=== PATIENT | female | born 1975 | race American Indian/Alaskan Native ===

== ENCOUNTER 2017-10-01 12:06 | Day surgery (SDC) | payer MEDICARE ==
[~2017-10-01 12:06] MED LIST: XYLOCAINE MPF 2% ONE
[2017-10-01] MEDS ORDERED: NACL 0.9% 1000 ML 1,000 ML ONE (12:38)
[2017-10-01] MEDS ORDERED: NACL 0.9% 1000 ML 1,000 ML IV SCH (14:00)
[2017-10-01] MEDS ORDERED: DIPRIVAN 10 MG/ML IV ONE ×2 (16:04→16:05)
--- NOTE | 2017-10-01 16:32 | Anesthesia Day of Surgery ---
Anesthesia Day of Surgery - Day of Surgery Patient Examined: Yes Patient H&P Reviewed: Yes Patient is NPO: Yes
--- NOTE | 2017-10-01 16:32 | Anesthesia Consultation ---
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 Heart catheterization this year show normal heart function per mother. - Pulmonary Hx Smoking: No Hx Asthma: Yes (INHALER 2x daily) Hx Sleep Apnea: No - Cardiovascular System Hx Hypertension: No Hx Heart Murmur: Yes - Central Nervous System Hx Psychiatric Problems: No - Gastrointestinal Hx Gastroesophageal Reflux Disease: Yes
--- NOTE | 2017-10-01 17:03 | Operative Report ---
Operative Report Operative Report: Date of procedure: 10/01/2017 Procedure: Colonoscopy with multiple biopsies Attending physician: Edy Judd MD Billing Representative: Edy Judd MD Indication: Patient is a 42-year-old female who presented history of abdominal pain and diarrhea. Colonoscopy is done to evaluate patient so that treatment may be directed based on the findings. Consent: Informed consent was obtained after advising the patient and family regarding nature of this procedure, its indications, potential benefits as well as possible complications including but not limited to bleeding perforation and adverse reaction to medication, infection as well as other cardiopulmonary complications. An informed written and verbal consent was then obtained after due opportunity was provided for questions and answers. Monitoring: Patient was monitored continuously with pulse oximetry and electrocardiographic recordings as well as blood pressure recordings. Vital signs remained stable throughout this procedure with no untoward events. Preoperative assessment: Patient was assessed immediately prior to this procedure for capacity to tolerate monitored anesthesia care and moderate sedation as well as general anesthesia. Patient's ASA classification is 2, Mallampati class is 2, Hyomental distance is 3. Instrument: Yastn videocolonoscope Medications: Propofol, given intravenously in divided doses for details please refer to anesthesia records Description of procedure: Patient was placed in the left lateral decubitus position after achieving sedation, a digital rectal examination was performed following which the colonoscope was introduced into the anal verge and advanced to the cecum which was identified by the cecal valve, the appendiceal orifice, as well as by the cecal strap and direct transillumination. The colonoscope was subsequently withdrawn with careful inspection of all mucosal surfaces. Patient tolerated this procedure well and was subsequently taken to the recovery room. The following findings were noted. Findings: Patient had densely adherent stool in sections of the colon which were vigorously irrigated with no underlying mucosal lesions. Several random biopsies were obtained from sigmoid colon to rule out microscopic colitis. There were otherwise no gross mucosal abnormalities seen. On the retroflex view at the anal verge, patient had internal hemorrhoids. Impression: Retained stool otherwise normal colonoscopy. Patient is status post multiple random biopsies. Internal hemorrhoids. Plan: Follow pathology report to rule out microscopic colitis. Continue as needed antidiarrheals. Manage supportively. Patient also may benefit from taking probiotics.
--- NOTE | 2017-10-01 17:04 | Discharge Summary ---
Short Stay Discharge Plan Activity: advance as tolerated Weight Bearing Status: Weight Bear as Tolerated Diet: regular
[2017-10-01 17:32] VITALS: BP 106/51
--- NOTE | 2017-10-01 20:29 | Post Anesthesia Evaluation ---
- Post Anesthesia Evaluation Patient Participated: Yes Airway Patent: Yes Stable Respiratory Function: Yes Nausea/Vomiting: No Temp > 96.8F: Yes Pain Manageable: Yes Adequeate Hydration: Yes Anesthesia Complications: No Block Receding Appropriately: Not Applicable Patient on Ventilator: No
== END 2017-10-01 12:07 | disposition home or self-care (01) ==
LOC: GIO 12:06
PROVIDERS: ATTEND Internal Medicine Gastroenterology
DX: R10.84 Generalized abdominal pain (principal); K59.00 Constipation, unspecified; R93.5 Abnormal findings on diagnostic imaging of other abdominal regions, including retroperitoneum; K64.8 Other hemorrhoids; K21.9 Gastro-esophageal reflux disease without esophagitis; J45.909 Unspecified asthma, uncomplicated; Z88.0 Allergy status to penicillin; Z91.041 Radiographic dye allergy status; Z88.1 Allergy status to other antibiotic agents; Z88.6 Allergy status to analgesic agent
CPT/HCPCS: 45380; 81025; 88305; J2704; J7030